=== PATIENT | male | born 1995 | race Hispanic/Latino ===

== ENCOUNTER 2019-05-07 09:24 | Emergency (ER) | payer OTHER, SELFPAY ==
--- NOTE | 2019-05-07 10:29 | RAD ---
CHEST XRAY PA AND LATERAL STANDARD: History: Anterior chest wall pain. Comparison: None. Findings: No acute fracture of the ribs. The lungs are clear. No pneumothorax. No effusion. No acute osseous ab normality. Impression: No acute intrathoracic abnormality. Transcribed Date/Time: 05/07/2019 10:36 AM
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
[2019-05-07] MEDS ORDERED: Ketorolac Tromethamine 60 MG/2 ML VIAL ONE (11:54)
[2019-05-07] MEDS ORDERED: ISOVUE-370 76%-LOCM 1 ML ONE (12:00)
== END 2019-05-07 11:25 | disposition home or self-care (01) ==
LOC: ERS 09:24
DX: S06.9X9A Unspecified intracranial injury with loss of consciousness of unspecified duration, initial encounter (principal); S27.0XXA Traumatic pneumothorax, initial encounter; S29.011A Strain of muscle and tendon of front wall of thorax, initial encounter; S00.03XA Contusion of scalp, initial encounter; V89.2XXA Person injured in unspecified motor-vehicle accident, traffic, initial encounter
CPT/HCPCS: 70450; 71046; 71260; 72125; 74177; 93005; 96372; J1885; Q9966